=== PATIENT | female | born 1985 | race Caucasian/White ===

== ENCOUNTER 2020-11-11 16:36 | Emergency (ER) | payer SELFPAY ==
[2020-11-11] MEDS ORDERED: Diazepam 5 MG TAB ONE (17:50)
== END 2020-11-11 19:00 | disposition home or self-care (01) ==
LOC: MADERS 16:36
DX: F31.81 Bipolar II disorder (principal); F17.210 Nicotine dependence, cigarettes, uncomplicated
CPT/HCPCS: 99283

== ENCOUNTER 2021-01-09 10:35 | Emergency (ER) | payer OTHER, SELFPAY | END 2021-01-09 11:50 | disposition home or self-care (01) | LOC: MADERS 10:35 | DX: Z48.817 Encounter for surgical aftercare following surgery on the skin and subcutaneous tissue (principal); F17.210 Nicotine dependence, cigarettes, uncomplicated | CPT/HCPCS: 29105 ==